=== PATIENT | male | born 1940 | race Caucasian/White ===

== ENCOUNTER 2017-03-19 08:18 | Emergency (ER) ==
[2017-03-19 08:33] VITALS: TEMP 98.7; BMI 24.0
[2017-03-19] MEDS ORDERED: APRESOLINE PO STA (08:54)
--- NOTE | 2017-03-19 09:04 | ED.PDOC ---
General ED Provider: Dr. CHANTAL VARMA Chief Complaint: Hypertension Stated Complaint: Patient was recently discharged from [facility] where he was evaluated for delerium that he had been having for afew days mostly in the mornings. He was found to have hypertension and Fluid overload and started on diuretics and heart medications. he was discharged to the [facility] last night. This morning he was combative and confused like every morning. Also note that his blood pressure was high, hence he was sent by the MA to the ER. Patient denies any compaints wants to know why he was sent here. 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 Time Seen by Physician: 08:55 Mode of Arrival: Walk-In Information Source: Patient Primary Care Provider: JUANIS BOND Nursing and Triage Documentation Reviewed and Agree: Yes Reviewed sepsis parameters & appropriate labs ordered?: Yes System Inflammatory Response Syndrome: Not Applicable Sepsis Protocol: For patient's 13 years and over: Temp is 96.8 and below OR 101 and greater Pulse >90 BPM Resp >20/minute Acutely Altered Mental Status Are patient's symptoms suggestive of a new infection, such as: -Pneumonia -Skin, Soft Tissue -Endocarditis -UTI -Bone, Joint Infection -Implantable Device -Acute Abdominal Infection -Wound Infection -Meningitis -Blood Stream Catheter Infection -Unknown System Inflammatory Response Syndrome: Not Applicable Review of Systems - Review Of Systems Constitutional: Reports: No symptoms Eyes: Reports: No symptoms Ears, Nose, Mouth, Throat: Reports: No symptoms Respiratory: Reports: No symptoms Cardiac: Reports: No symptoms GI: Reports: No symptoms : Reports: No symptoms Musculoskeletal: Reports: No symptoms Skin: Reports: No symptoms Neurological: Reports: Anxiety, Cognitive dysfunction, Other (Tremors ) Endocrine: Reports: No symptoms Hematologic/Lymphatic: Reports: No symptoms All Other Systems: Reviewed and Negative Past Medical History - Past Medical History Endocrine: Reports: Unknown Cardiovascular: Reports: Hypertension Respiratory: Reports: Unknown Hematological: Reports: Unknown Gastrointestinal: Reports: Unknown Genitourinary: Reports: Unknown Neuro/Psych: Reports: Parkinson's Musculoskeletal: Reports: None Cancer: Reports: None - Surgical History General Surgical History: Reports: Unknown - Family History Family History: Reports: Unknown - Social History Smoking Status: Former smoker Hx Substance Use: No Alcohol Screening: None Physical Exam - Physical Exam Appearance: Well-appearing, No pain distress, Well-nourished Eyes: BASILIO, EOMI, Conjunctiva clear ENT: Ears normal, Nose normal, Oropharynx normal Neck: Supple Respiratory: Airway patent, Breath sounds clear, Breath sounds equal, Respirations nonlabored Cardiovascular: RRR, Pulses normal, No rub, No murmur GI/: Soft, Nontender, No masses, Bowel sounds normal, No Organomegaly Musculoskeletal: Normal strength, ROM intact, No edema, No calf tenderness Skin: Warm, Dry, Normal color Neurological: Sensation intact, Motor intact (no tremors ), Reflexes intact, Cranial nerves intact, Alert, Oriented Psychiatric: Affect appropriate, Mood appropriate Critical Care Note - Critical Care Note Total Time (mins): 0 Course - Course Hematology/Chemistry: 03/19/17 09:00 03/19/17 09:00 Orders, Labs, Meds: Lab Review 03/19/17 03/19/17 09:00 09:00 WBC 6.51 RBC 5.40 Hgb 15.9 Hct 46.1 MCV 85.4 MCH 29.4 MCHC 34.5 RDW Coeff of Ben 12.5 Plt Count 148 Immature Gran % (Auto) 0.2 Neut % (Auto) 78.1 Lymph % (Auto) 13.8 Atlantic % (Auto) 6.3 Eos % (Auto) 1.1 Baso % (Auto) 0.5 Immature Gran # (Auto) 0.0 Neut # 5.1 Lymph # 0.9 Atlantic # 0.4 Eos # 0.1 Baso # 0.0 Sodium 143 Potassium 3.9 Chloride 109 H Carbon Dioxide 24 Anion Gap 13.9 BUN 25 H Creatinine 1.26 H Estimated GFR (MDRD) 55.00 BUN/Creatinine Ratio 19.84 Glucose 151 H Calcium 9.1 Total Bilirubin 1.5 H AST 17 ALT < 6 L Alkaline Phosphatase 95 Total Protein 6.4 Albumin 3.4 Globulin 3.0 Albumin/Globulin Ratio 1.13 Orders Category Date Time Status CBC W/ AUTO DIFF Stat LAB 03/19/17 09:00 Completed COMPREHENSIVE METABOLIC PANEL Stat LAB 03/19/17 09:00 Completed Hydralazine HCl [Apresoline] MEDS 03/19/17 08:54 Discontinued 50 mg PO ONCE STA Medications Discontinued Medications Generic Name Dose Route Start Last Admin Trade Name Freq PRN Reason Stop Dose Admin Hydralazine HCl 50 mg 03/19/17 08:54 03/19/17 09:02 Apresoline PO 03/19/17 08:55 50 mg ONCE STA Administration Vital Signs: Temp Pulse Resp BP Pulse Ox 03/19/17 10:06 169/88 H 03/19/17 08:56 198/94 H 03/19/17 08:23 98.7 F 72 16 196/105 H 100 Departure - Departure Time of Disposition: 11:15 Disposition: HOME SELF-CARE Discharge Problem: Parkinson disease Hypertension Qualifiers: Hypertension type: essential hypertension Qualified Code(s): I10 - Essential ( primary) hypertension Instructions: Hypertension (ED) Condition: Stable Pt referred to PMD for follow-up: Yes Additional Instructions: Continue home medications for Blood pressure Follow up with PCP In 3 days Allergies/Adverse Reactions: Allergies Penicillins Adverse Reaction (Verified 03/19/17 08:41) sulfamethoxazole [From Bactrim] Adverse Reaction (Verified 03/19/17 08:41) trimethoprim [From Bactrim] Adverse Reaction (Verified 03/19/17 08:41) Home Medications: Ambulatory Orders Bimatoprost Opth [Lumigan] 1 drop EACHEYE BEDTIME 06/22/13 Lisinopril [Zestril] 10 mg PO DAILY 06/22/13 Ropinirole HCl [Requip] 1 mg PO TID 01/26/16 Acetaminophen [Tylenol] 650 mg PO Q4H PRN 03/19/17 Bisacodyl 10 mg RC PRN PRN 03/19/17 Brimonidine Tartrate/Timolol [Combigan Eye Drops] 1 drop OP BID 03/19/17 Carbidopa/Levodopa [Carbidopa-Levo ER 50-200 Tab] 1 each PO 5XD 03/19/17 Carvedilol 3.125 mg PO BID 03/19/17 Furosemide 20 mg PO DAILY 03/19/17 Magnesium Hydroxide [Milk of Magnesia] 30 ml PO DAILY PRN 03/19/17 Disposition Discussed With: Patient, Family
[2017-03-19 10:06] VITALS: BP 169/88
== END 2017-03-19 11:20 | disposition home or self-care (01) ==
LOC: ED 08:18
DX: I10 Essential (primary) hypertension (principal); G20 Parkinson's disease
CPT/HCPCS: 36415; 80053; 85025; 99283

== ENCOUNTER 2018-06-15 13:39 | Outpatient (CLI) | END 2018-06-15 13:58 | disposition short-term general hospital (02) | LOC: AMBL 13:39 | PROVIDERS: ATTEND Emergency Medicine | DX: R55 Syncope and collapse (principal) ==

== ENCOUNTER 2018-06-19 05:41 | Outpatient (CLI) | payer OTHER ==
[2018-06-19 06:08] VITALS: BMI 26.0
== END 2018-06-19 05:49 | disposition critical access hospital (66) ==
LOC: AMBL 05:41
PROVIDERS: ATTEND Family Medicine
DX: S09.90XA Unspecified injury of head, initial encounter (principal); M54.9 Dorsalgia, unspecified; W06.XXXA Fall from bed, initial encounter; Y92.122 Bedroom in nursing home as the place of occurrence of the external cause

== ENCOUNTER 2018-06-19 05:57 | Emergency (ER) ==
[2018-06-19 06:08] VITALS: BP 182/95; TEMP 99.3; BMI 26.0
--- NOTE | 2018-06-19 06:09 | ED.PDOC ---
General ED Provider: Dr. ROSINA VAUGHAN-ER Chief Complaint: Fall Stated Complaint: ems reports patient fell at ri--c/u of posterior neck pain , gray and lower back pain Time Seen by Physician: 06:00 Mode of Arrival: Ambulance Information Source: Patient, EMT Exam Limitations: No limitations Primary Care Provider: JUANIS BOND Nursing and Triage Documentation Reviewed and Agree: Yes Does patient meet sepsis criteria?: No System Inflammatory Response Syndrome: Not Applicable Sepsis Protocol: For patient's 13 years and over: Temp is 96.8 and below OR 101 and greater Pulse >90 BPM Resp >20/minute Acutely Altered Mental Status Are patient's symptoms suggestive of a new infection, such as: -Pneumonia -Skin, Soft Tissue -Endocarditis -UTI -Bone, Joint Infection -Implantable Device -Acute Abdominal Infection -Wound Infection -Meningitis -Blood Stream Catheter Infection -Unknown Trauma/Injury Complaint Exam - Head Injury Complaint/Exam Location of Pain: Reports: Scalp Mechanism of Injury: Reports: Trauma Onset/Duration: this am Symptoms Are: Still present Initial Severity: Mild Current Severity: Mild Character: Reports: Dull Aggravating: Reports: None Alleviating: Reports: None Associated Signs and Symptoms: Reports: Neck pain. Denies: Confusion, Memory loss, Seizure, Epistaxis, Dental malocclusion, Nausea, Vomiting Loss of Consciousness: None SDH Risk Factors: Present: Recent trauma Immobilization Removed Post Exam: No Head Injury Findings: Present: Normal findings Glascow Coma Scale (see protocol): 15 Focal Weakness: Present: None Focal Sensory Loss: Present: None Gait: Normal Gag Reflex Present: Yes Finger to Nose: Normal Rhomberg Test Positive: No Babinski Sign: Negative Right, Negative Left Differential Diagnoses: Trauma Review of Systems - Review Of Systems Constitutional: Reports: No symptoms Eyes: Reports: No symptoms Ears, Nose, Mouth, Throat: Reports: No symptoms Respiratory: Reports: No symptoms Cardiac: Reports: No symptoms GI: Reports: No symptoms : Reports: No symptoms Musculoskeletal: Reports: No symptoms Skin: Reports: No symptoms Neurological: Reports: No symptoms Endocrine: Reports: No symptoms Hematologic/Lymphatic: Reports: No symptoms All Other Systems: Reviewed and Negative Past Medical History - Past Medical History Previously Healthy: No Endocrine: Reports: Unknown Cardiovascular: Reports: Hypertension Respiratory: Reports: Unknown Hematological: Reports: Unknown Gastrointestinal: Reports: Unknown Genitourinary: Reports: Unknown Neuro/Psych: Reports: Parkinson's Musculoskeletal: Reports: None Cancer: Reports: None - Surgical History General Surgical History: Reports: Unknown - Family History Family History: Reports: Unknown - Social History Smoking Status: Former smoker Hx Substance Use: No Alcohol Screening: None - Immunizations Tetanus Shot up to Date: (UNKNOWN) Physical Exam - Physical Exam Appearance: Well-appearing, No pain distress, Well-nourished Eyes: BASILIO, EOMI, Conjunctiva clear ENT: Ears normal, Nose normal, Oropharynx normal Neck: Supple Respiratory: Airway patent, Breath sounds clear, Breath sounds equal, Respirations nonlabored Cardiovascular: RRR, Pulses normal, No rub, No murmur GI/: Soft, Nontender, No masses, Bowel sounds normal, No Organomegaly Musculoskeletal: Normal strength, ROM intact, No edema, No calf tenderness Skin: Warm, Dry, Normal color Neurological: Sensation intact, Motor intact, Reflexes intact, Cranial nerves intact, Alert, Oriented Psychiatric: Affect appropriate, Mood appropriate Interpretation - Radiology Interpretation Radiology Interpretation By: Radiologist Radiology Results: Negative Exam Interpreted: CT Scan Critical Care Note - Critical Care Note Total Time (mins): 0 Course - Course Orders, Labs, Meds: Orders Category Date Time Status Carvedilol [Coreg] MEDS 06/19/18 06:35 Discontinued 3.125 mg PO NOW STA Furosemide [Lasix Tab] MEDS 06/19/18 06:48 Discontinued 20 mg .ROUTE .STK-MED ONE Furosemide [Lasix Tab] MEDS 06/19/18 06:36 Discontinued 20 mg PO ONCE STA Lisinopril [Zestril] MEDS 06/19/18 06:36 Discontinued 40 mg PO ONCE STA CT CERVICAL SPINE W/O CONTRAST Stat RADS 06/19/18 06:[address] HEAD W/O CONTRAST Stat RADS 06/19/18 06:[address] LUMBAR SPINE W/O CONTRAST Stat RADS 06/19/18 06:[address] PELVIS W/O CONTRAST Stat RADS 06/19/18 06:02 Completed Medications Discontinued Medications Generic Name Dose Route Start Last Admin Trade Name Freq PRN Reason Stop Dose Admin Carvedilol 3.125 mg 06/19/18 06:35 Coreg PO 06/19/18 06:36 NOW STA Furosemide 20 mg 06/19/18 06:36 06/19/18 06:54 Lasix Tab PO 06/19/18 06:37 Not Given ONCE STA Lisinopril 40 mg 06/19/18 06:36 06/19/18 06:51 Zestril PO 06/19/18 06:37 40 mg ONCE STA Administration Vital Signs: Temp Pulse Resp BP Pulse Ox 06/19/18 05:59 99.3 F 63 20 182/95 H 96 Departure - Departure Time of Disposition: 07:00 Disposition: TRANSFER SNF Discharge Problem: Fall Qualifiers: Encounter type: initial encounter Qualified Code(s): W19.XXXA - Unspecified fall, initial encounter Instructions: Fall Prevention (ED) Condition: Stable Pt referred to PMD for follow-up: Yes IPMP verified?: No Additional Instructions: monitor bp at ri Allergies/Adverse Reactions: Allergies ciprofloxacin Adverse Reaction (Verified 06/19/18 06:15) Unknown Penicillins Adverse Reaction (Verified 06/19/18 06:15) Unknown Sulfa (Sulfonamide Antibiotics) Adverse Reaction (Verified 06/19/18 06:15) Unknown sulfamethoxazole [From Bactrim] Adverse Reaction (Verified 06/19/18 06:15) Unknown trimethoprim [From Bactrim] Adverse Reaction (Verified 06/19/18 06:15) Unknown Home Medications: Ambulatory Orders Lisinopril [Zestril] 40 mg PO DAILY 06/22/13 Ropinirole HCl [Requip] 1 mg PO BID 01/26/16 Acetaminophen [Tylenol] 650 mg PO Q4H PRN 03/19/17 Bisacodyl 5 mg PO DAILY PRN 03/19/17 Brimonidine Tartrate/Timolol [Combigan Eye Drops] 1 drop LEFTEYE BID 03/19/17 Carbidopa/Levodopa [Carbidopa-Levo ER 50-200 Tab] 1 each PO BID 03/19/17 Carvedilol 3.125 mg PO BID 03/19/17 Furosemide 20 mg PO DAILY 03/19/17 Carbidopa/Levodopa [Sinemet Cr 50-200 Tablet] 1 each PO Q24H PRN 06/19/18 Latanoprost/Pf [Latanoprost 0.005% Eye Drop] 1 drop LEFTEYE BEDTIME 06/19/18 Pimavanserin Tartrate [Nuplazid] 34 mg PO DAILY 06/19/18 Disposition Discussed With: Patient
[2018-06-19] MEDS ORDERED: COREG PO STA (06:35)
[2018-06-19] MEDS ORDERED: LASIX TAB PO STA ×2 (06:36)
[2018-06-19] MEDS ORDERED: ZESTRIL PO STA (06:36)
--- NOTE | 2018-06-19 06:47 | CT ---
EXAM: CT brain without contrast HISTORY: Fall TECHNIQUE: CT of the brain without intravenous contrast FINDINGS: There is no acute hemorrhage midline shift or mass effect. No hydrocephalus or abnormal e xtra-axial fluid collection. Generalized involutional atrophy, severe. Chronic microvascular change s of the white matter tracts, moderate. No acute large vessel territorial infarct is seen. The bony cranium appears normal. The visualized paranasal sinuses are clear. Soft tissues without significan t abnormality. IMPRESSION: 1. Chronic changes as described. No acute intracranial abnormality is seen.
[2018-06-19] MEDS ORDERED: LASIX TAB ONE (06:48)
--- NOTE | 2018-06-19 06:50 | CT ---
CT cervical spine without contrast HISTORY: Status post fall TECHNIQUE: CT of the cervical spine with multiplanar reformations. FINDINGS: Reformatted images demonstrate normal alignment with preservation of vertebral body height . Mild multilevel endplate spondylosis. Mild multilevel anterior sac indentation. Relative preserv ation of disc space height. No fracture seen on the axial or reformatted images. No acute surroundi ng soft tissue abnormalitites. Lung apices are clear. IMPRESSION: No acute findings in the cervical spine.
--- NOTE | 2018-06-19 06:56 | CT ---
Exam: CT lumbar spine without contrast History: Fall with back pain FINDINGS: Lumbar spine shows normal alignment. Vertebral body height is maintained. Disc space hei ght is maintained. The bones demineralized. Multilevel anterior plate spondylosis with some bridgin g osteophytes. Posterior endplate changes are generally mild with mild central canal narrowing. The sacrum is intact. No immediate paravertebral soft tissue abnormalities. Impression: 1. No acute abnormality of the lumbar spine 2. Bridging, flowing anterior osteophytes consistent with diffuse idiopathic skeletal hyperostosis.
--- NOTE | 2018-06-19 06:58 | CT ---
Exam: CT pelvis without contrast History: Fall Technique: [address] bony pelvis with multiplanar reformations FINDINGS: The pelvic ring is intact. The femoral hips are intact. Symmetric, moderate bilateral hi p osteoarthritic change. The acetabula are intact. Incidental small intestine containing right ingu inal hernia without complication. No acute visceral abnormalities are seen. Atherosclerotic vascula r calcifications are present. Colonic diverticulosis of the sigmoid. Impression: 1. No acute findings of the bony pelvis or femoral hips. 2. Right inguinal hernia and colonic diverticulosis
== END 2018-06-19 10:33 ==
LOC: ED 05:57
DX: M54.2 Cervicalgia (principal); R51 Headache; M54.5 Low back pain; W19.XXXA Unspecified fall, initial encounter
CPT/HCPCS: 99283

== ENCOUNTER 2018-06-23 14:16 | Outpatient (CLI) | END 2018-06-23 14:17 | disposition home or self-care (01) | LOC: CAR 14:16 | PROVIDERS: ATTEND Internal Medicine | DX: I49.9 Cardiac arrhythmia, unspecified (principal) | CPT/HCPCS: 93005; 93010 ==

== ENCOUNTER 2018-10-27 16:30 | Outpatient (CLI) ==
--- NOTE | 2018-10-27 16:55 | DI ---
Exam: Two views of the chest. Comparison: None available. Reason for exam: Difficulty swallowing with increased secretions. FINDINGS: No pneumothorax, pleural effusion, or focal airspace consolidation. The cardiac silhouett e is not enlarged. The imaged osseous structures appear grossly unremarkable without acute fracture. There is elevation of the right hemidiaphragm. Impression: No acute cardiopulmonary process.
== END 2018-10-27 16:31 | disposition home or self-care (01) ==
LOC: RAD 16:30
PROVIDERS: ATTEND Internal Medicine
DX: R13.10 Dysphagia, unspecified (principal)

== ENCOUNTER 2018-10-28 04:51 | Outpatient (CLI) ==
[2018-10-28 05:08] VITALS: BMI 24.3
== END 2018-10-28 04:55 | disposition critical access hospital (66) ==
LOC: AMBL 04:51
PROVIDERS: ATTEND Family Medicine
DX: I46.9 Cardiac arrest, cause unspecified (principal); I50.9 Heart failure, unspecified

== ENCOUNTER 2018-10-28 04:57 | Emergency (ER) ==
[2018-10-28 05:08] VITALS: BP 54/34; TEMP 97.4; BMI 24.3
[2018-10-28] MEDS ORDERED: SODIUM BICARBONATE 8.4% IVP STA (05:22)
[2018-10-28] MEDS ORDERED: EPINEPHRINE 1 MG/10 ML SYRINGE IV STA ×4 (05:23→06:27)
--- NOTE | 2018-10-28 05:27 | ED.PDOC ---
General ED Provider: Dr. ROSINA VAUGHAN-ER Chief Complaint: Cardiac Arrest Stated Complaint: ems called for unresponsive male--[facility] notified ems he had been unresponsive for 10 min prior to their arrival Time Seen by Physician: 04:55 Mode of Arrival: Stretcher Information Source: EMT Exam Limitations: Clinical condition Primary Care Provider: STEFANIE SOTO Nursing and Triage Documentation Reviewed and Agree: Yes Does patient meet sepsis criteria?: No System Inflammatory Response Syndrome: Not Applicable Sepsis Protocol: For patient's 13 years and over: Temp is 96.8 and below OR 101 and greater Pulse >90 BPM Resp >20/minute Acutely Altered Mental Status Are patient's symptoms suggestive of a new infection, such as: -Pneumonia -Skin, Soft Tissue -Endocarditis -UTI -Bone, Joint Infection -Implantable Device -Acute Abdominal Infection -Wound Infection -Meningitis -Blood Stream Catheter Infection -Unknown Cardiac Resuscitation - Cardiac Resuscitation/Physical Exam Onset/Duration: Minutes, Prior to arrival Witnessed Arrest: No Down-time Before BLS Initiated: 10 min Airway Prehospital Findings: Reports: Patent Breathing Prehospital Findings: Reports: Apnea Circulation/Rhythm Prehospital Findings: Reports: Pulses absent Disability/Neurological Prehospital Findings: Reports: Unresponsive Breathing Prehospital Intervention: Reports: Oxygen, Bag-valve mask Circulation/Rhythm Prehospital Intervention: Reports: Chest compressions Circulation/Rhythm Prehospital Response: Present: Pulses absent 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 Airway ED Findings: Patent Breathing ED Findings: Present: Apnea Circulation/Rhythm ED Findings: Present: Pulses absent Disability/Neurological ED Findings: Present: Unresponsive Breathing ED Intervention: Intubated by Other (intubated by ems) Circulation/Rhythm ED Intervention: Chest compressions, IV/IO placed, Epinephrine Breathing ED Response: ETT in airway Circulation/Rhythm ED Response: Present: Pulses absent Right Pupil: Fixed Left Pupil: Fixed Review Of Systems: Unable due to extremis EMS/Code Sheet Reviewed: Yes Patient is a DNR: No Resuscitation Successful: No Terminated At: 5:15 Differential Diagnoses: Asystole, Card. Rhythm Disturbance, PEA Past Medical History - Past Medical History Previously Healthy: No Endocrine: Reports: Unknown Cardiovascular: Reports: Hypertension, CHF Respiratory: Reports: Unknown Hematological: Reports: Unknown Gastrointestinal: Reports: Unknown Genitourinary: Reports: Unknown Neuro/Psych: Reports: Parkinson's Musculoskeletal: Reports: None Cancer: Reports: None - Surgical History General Surgical History: Reports: Unknown - Family History Family History: Reports: Unknown - Social History Smoking Status: Former smoker Hx Substance Use: No Alcohol Screening: None - Immunizations Tetanus Shot up to Date: (UNKNOWN) Interpretation - Radiology Interpretation Radiology Interpretation By: ED Physician Radiology Results: Negative Exam Interpreted: Portable CXR Procedures - Intubation Indication: Present: Respiratory Insufficiency, Altered Mental Status Type of Tube Used: Endotracheal Tube Size: 7.5 Cricoid Pressure Used: Yes Tube Pedro Used: Yes Number of Attempts: 3 Suction Used: Yes Glidescope Used: No CO2 Detector Used: Yes Lung Sounds Equal Bilaterally: Yes Intubation Complications: Present: No complications Tube Inserted By: katherine banegas Tube Placement Verified by X-ray: Yes Re-Evaluation - Re-Evaluation Time of Re-Evaluation: 05:15 Status: Unchanged Vital Signs Stable: No Physician Notification - Case Discussed Physician Notified: dr soto Time of Notification: 05:30 Critical Care Note - Critical Care Note Total Time (mins): 20 Course - Course Orders, Labs, Meds: Orders Category Date Time Status IV [ED IV/MEDIPORT/POWERPORT] .ONCE EMERGENCY 10/28/18 05:21 Active 0.9 % Sodium Chloride [Saline Flush] MEDS 10/28/18 05:21 Active 1 syr IVF PRN PRN Epinephrine [Epinephrine 1 mg/10 ml Syringe] MEDS 10/28/18 05:23 Discontinued 1 mg IV ONCE STA Epinephrine [Epinephrine 1 mg/10 ml Syringe] MEDS 10/28/18 05:23 Discontinued 1 mg IV ONCE STA Epinephrine [Epinephrine 1 mg/10 ml Syringe] MEDS 10/28/18 05:23 Discontinued 1 mg IV ONCE STA Sodium Bicarbonate [Sodium Bicarbonate 8.4%] MEDS 10/28/18 05:22 Discontinued 50 meq IVP ONCE STA CXR [CHEST, 1V AP ONLY] Stat RADS 10/28/18 05:21 Ordered Medications Generic Name Dose Route Start Last Admin Trade Name Freq PRN Reason Stop Dose Admin Sodium Chloride 1 syr 10/28/18 05:21 Saline Flush IVF PRN PRN To flush IV Discontinued Medications Generic Name Dose Route Start Last Admin Trade Name Freq PRN Reason Stop Dose Admin Epinephrine HCl 1 mg 10/28/18 05:23 Epinephrine 1 Mg/10 Ml Syringe IV 10/28/18 05:24 ONCE STA Epinephrine HCl 1 mg 10/28/18 05:23 Epinephrine 1 Mg/10 Ml Syringe IV 10/28/18 05:24 ONCE STA Epinephrine HCl 1 mg 10/28/18 05:23 Epinephrine 1 Mg/10 Ml Syringe IV 10/28/18 05:24 ONCE STA Sodium Bicarbonate 50 meq 10/28/18 05:22 Sodium Bicarbonate 8.4% IVP 10/28/18 05:23 ONCE STA Vital Signs: Temp Pulse Resp BP Pulse Ox 10/28/18 04:57 97.4 F L 0 L 0 L 54/34 L 94 L Departure - Departure Time of Disposition: 05:20 Disposition: Discharge Problem: Cardiac arrest Instructions: Heart Failure (ED) Condition: Pt referred to PMD for follow-up: Yes IPMP verified?: No Allergies/Adverse Reactions: Allergies ciprofloxacin Adverse Reaction (Verified 10/28/18 05:24) Unknown Penicillins Adverse Reaction (Verified 10/28/18 05:24) Unknown Sulfa (Sulfonamide Antibiotics) Adverse Reaction (Verified 10/28/18 05:24) Unknown sulfamethoxazole [From Bactrim] Adverse Reaction (Verified 10/28/18 05:24) Unknown trimethoprim [From Bactrim] Adverse Reaction (Verified 10/28/18 05:24) Unknown Home Medications: Ambulatory Orders Lisinopril [Zestril] 40 mg PO DAILY 06/22/13 Ropinirole HCl [Requip] 1 mg PO BID 01/26/16 Acetaminophen [Tylenol] 650 mg PO Q4H PRN 03/19/17 Bisacodyl 5 mg PO DAILY PRN 03/19/17 Brimonidine Tartrate/Timolol [Combigan Eye Drops] 1 drop LEFTEYE BID 03/19/17 Carbidopa/Levodopa [Carbidopa-Levo ER 50-200 Tab] 1 each PO BID 03/19/17 Carvedilol 3.125 mg PO BID 03/19/17 Furosemide 20 mg PO DAILY 03/19/17 Carbidopa/Levodopa [Sinemet Cr 50-200 Tablet] 1 each PO Q24H PRN 06/19/18 Latanoprost/Pf [Latanoprost 0.005% Eye Drop] 1 drop LEFTEYE BEDTIME 06/19/18 Pimavanserin Tartrate [Nuplazid] 34 mg PO DAILY 06/19/18 Transfer Form Completed: No Disposition Discussed With: Family
[2018-10-28] MEDS ORDERED: [UNRECOGNIZED DRUG - OTHER] IVP STA (06:27)
[2018-10-28] MEDS ORDERED: SODIUM CHLORIDE 1,000 ML IV STA (06:59)
--- NOTE | 2018-10-28 07:42 | DI ---
Exam: Chest one-view History: Cardiac arrest Findings / impression: Compared with 10/27/2018. Interval decreasing lung volumes with prominent va sculature and interstitium, new. Endotracheal tube at the clavicles level. No developing chest wall abnormality. Impression: Decreasing lung volumes with vascular and interstitial prominence. Correlate for edema versus technique accentuation.
== END 2018-10-28 06:52 | disposition expired ==
LOC: ED 04:57
DX: I46.9 Cardiac arrest, cause unspecified (principal); I10 Essential (primary) hypertension; I50.9 Heart failure, unspecified; G20 Parkinson's disease
CPT/HCPCS: 96361; 96374; 96375; 99291